=== PATIENT | male | born 1990 | race Caucasian/White ===

== ENCOUNTER 2018-03-16 12:49 | Emergency (ER) | payer OTHER ==
[~2018-03-16] VITALS: Ht 172.7 cm; Wt 81.7 kg
[~2018-03-16 12:49] MED LIST: HYDROCODONE-APA1 TA1 PO; IBUPROFEN 800800 M1 PO; ZOFRAN ODT4 MG PO
[2018-03-16 14:01] VITALS: BP 124/72
== END 2018-03-16 14:02 | disposition home or self-care (01) ==
LOC: M.ERS 12:49
DX: S61.412A Laceration without foreign body of left hand, initial encounter (principal); F17.210 Nicotine dependence, cigarettes, uncomplicated; W26.8XXA Contact with other sharp object(s), not elsewhere classified, initial encounter; Y93.89 Activity, other specified; Y92.89 Other specified places as the place of occurrence of the external cause; Y99.8 Other external cause status

== ENCOUNTER 2018-07-30 19:40 | Emergency (ER) | payer OTHER ==
[~2018-07-30] VITALS: Ht 170.2 cm; Wt 79.4 kg
[2018-07-30 20:22] LABS: ABSOLUTE BASOPHILS 0.1 thou/uL (0.0-0.2); ABSOLUTE LYMPHOCYTES 2.8 thou/uL (0.8-5.3); ABSOLUTE MONOCYTES 0.7 thou/uL (0.0-1.2); ABSOLUTE NEUTROPHILS 7.2 thou/uL (1.6-8.1); BASOPHILS 0.7 %; EOSINOPHILS 0.4 %; HEMATOCRIT 41.9 % (42.0-52.0); LYMPHOCYTES 25.7 %; MCHC 33.4 g/dL (28.0-37.0); MCV 89.6 fL (80.0-100.0); MONOCYTES 6.3 %; MPV 7.5 fl. (7.2-11.1); NUCLEATED RBCS 0 /100WBC; PLATELET COUNT* 304 thou/uL (150-400); POLYS 66.9 %; RBC 4.68 mil/uL (4.50-6.00); RDW-CV 14.2 % (10.5-14.5); WBC 10.8 thou/uL (4.0-11.0)
[2018-07-30 20:29] LABS: ANION GAP 10 mmol/L (7-16); BUN 6 mg/dL (7-18); CALCIUM 8.5 mg/dL (8.5-10.1); CHLORIDE 101 mmol/L (98-107); CO2 26 mmol/L (21-32); CREATININE 0.7 mg/dL (0.6-1.3); GLUCOSE 82 mg/dL (70-99); POTASSIUM 3.6 mmol/L (3.5-5.1); SODIUM 137 mmol/L (136-145)
[2018-07-30 20:37] LABS: ALBUMIN 3.9 g/dL (3.4-5.0); ALKALINE PHOSPHATASE 65 U/L (46-116); SGOT 13 U/L (15-37); SGPT 20 U/L (30-65); TOTAL BILIRUBIN 0.4 mg/dL (<0.1-1.0); TOTAL PROTEIN 6.7 g/dL (6.4-8.2); TROPONIN-I LEVEL <0.06 ng/mL (<0.06)
[2018-07-30] MEDS ORDERED: NAPROSYN500 MG PO (21:07)
[2018-07-30] MEDS ORDERED: ROBAXIN 750 MG750 M1 PO (21:07)
[2018-07-30 21:20] VITALS: BP 124/42
--- NOTE | 2018-07-31 10:13 | EKG ---
[place] [address] ELECTROCARDIOGRAM REPORT Name: CHAVA CARTAGENA [id number] Admission: 07/30/18 Attend Phys: Discharge: 07/30/18 Date of : 88 Report #: [id number] THIS REPORT FOR: //name// [facility] ED Test Date: 2018-07-30 Test Time: 19:58:22 Pat Name: CHAVA CARTAGENA Department: Room: Gender: M [employer] Supervisor: : 1990 Requested By: Albina Lopez Order Number: [id number] MD: Bart Shipman Measurements Intervals [place] Rate: 74 P: 48 NE: 164 QRS: 37 QRSD: 97 T: 43 QT: 388 QTc: 431 Interpretive Statements Sinus rhythm No previous ECG available for comparison Electronically Signed On 07-31-2018 10:13:13 [employer] by Bart Shipman [email or web address] <ELECTRONICALLY SIGNED> By: Bart Shipman MD, [facility] 07/31/18 1013 [id number] 57 Bart Shipman MD, FACC /EPI
== END 2018-07-30 21:21 | disposition home or self-care (01) ==
LOC: M.ERS 19:40
PROVIDERS: Physician Assistant
DX: R07.89 Other chest pain (principal); F17.210 Nicotine dependence, cigarettes, uncomplicated